=== PATIENT | male | born 2005 | race Hispanic/Latino ===

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

== ENCOUNTER 2025-05-16 20:45 | Emergency (ER) | payer OTHER ==
[~2025-05-16] VITALS: Ht 167.6 cm; Wt 70.8 kg
[2025-05-16 21:24] VITALS: PULSE 60; RESP 16; TEMP 98.3; O2SAT 100
[2025-05-16] MEDS ORDERED: BACTRIM DS TAB1 EACH PO (21:41)
[2025-05-16] MEDS ORDERED: CEPHALEXIN500 MG PO (21:41)
== END 2025-05-16 21:44 | disposition home or self-care (01) ==
LOC: ER 20:55
DX: L02.01 Cutaneous abscess of face (principal); S00.212A Abrasion of left eyelid and periocular area, initial encounter; W26.8XXA Contact with other sharp object(s), not elsewhere classified, initial encounter; Y92.89 Other specified places as the place of occurrence of the external cause
CPT/HCPCS: 99282